=== PATIENT | female | born 1930 | race Caucasian/White ===

== ENCOUNTER 2016-07-31 13:43 | Day surgery (SDC) | payer MEDICARE, OTHER ==
[2016-07-31 14:30] VITALS: BP 181/85; PULSE 86; RESP 16; TEMP 97.2; O2SAT 96
--- NOTE | 2016-07-31 16:22 | RADRPT ---
EXAM DATE/TIME: 07/31/2016 00:00 [facility] COMPARISON : No previous studies available for comparison. INDICATIONS : Compress fx T 12 and L 2 OBJECTIVE: Temperature: 97.2 Heart Rate: 87 Blood Pressure: 182/105 Respiratory: 18 Oximetry: 96 PNEUMONIA VACCINE: YES HISTORY OF PRESENT ILLNESS: The patient sustained a compression fracture at the T12 level in mid June and continues to have s ignificant daily pain, mainly limiting her mobility. She is fairly comfortable at rest at this point. She does not have any radicular symptomatology. Patient has a known history of osteoporosis. An MRI performed at [facility] reveals moderate compressive deformity and severe diffuse edema and hemorrhage within the T12 vertebral body consistent with subacute injury. No evidence of retropulsion . Nothing to suggest pathologic fracture. A severe nonacute fracture deformity is present at L2 with central vertebra-plana yielding a bowtie configuration on sagittal evaluation with mild dorsal retrop ulsion and mild focal accentuation of kyphotic angulation. PAST MEDICAL HISTORY : 1. Parkinson's. PAST SURGICAL HISTORY : 1. Hysterectomy. C section X 1 Bilateral Knees replacement SOCIAL HISTORY : Social alcohol use. Allergy: amoxcicillin 1. Carbodopa/ana 25/100 t.i.d. 2. Trospium chloride mg b.i.d. 3. Thyroxine 75 mg q.d. Occuvite q.d. PHYSICAL EXAMINATION: Lungs: Clear to auscultation. CV: Regular rate and rhythm. The back is tender to palpitation at the thoracolumbar junction. IMAGING STUDIES: See above ASSESSMENT: Patient with moderate severity subacute compression fracture at T12 with persistent moderate symptoma tology, mainly with ambulation. The MR appearance of the fracture raises concern regarding the integr ity of the medullary space for retention of bone cement. Specifically, the majority of the vertebra a ppears to be fairly severely pulverized and there may be very little intact cortex to contain injecte d cement. If this is the case, we will accomplish very little with percutaneous augmentation. That sa id, the risk of procedural complication is probably only minimally greater than in the average case. The patient did indicate to me that she has had problems with anesthesia in the past, apparently post procedure confusion is the main issue. I had a long discussion with the patient, her and her son regarding the potential risks, benefits and alternatives. I am equivocal as to the likely short- term benefit of percutaneous vertebral augmentation in this case, however the likely strongest indica tion would be desire to prevent (if possible) progression of this acute fracture to a very severe lev el of anatomic deformity as we see with the old fracture at L2. PLAN: The patient and her family are going to consider options and I believe they will want to further disc uss these options with Dr. Hooks. Should they decided to proceed, we could get Mrs. Euceda on the schedule fairly quickly any time in the next couple of weeks Christos, I certainly appreciate the opportunity to assist you in the care of this pleasant lady. Hector Prescott MD on July 31, 2016 at 15:57 Board Certified Radiologist. This report was verified electronically.
== END 2016-07-31 15:20 | disposition home or self-care (01) ==
LOC: HROP 13:43 → HRIP 13:44 → HROP 15:20
PROVIDERS: ATTEND Family Medicine
DX: S22.080A Wedge compression fracture of T11-T12 vertebra, initial encounter for closed fracture (principal); M81.0 Age-related osteoporosis without current pathological fracture; G20 Parkinson's disease; Z53.9 Procedure and treatment not carried out, unspecified reason
CPT/HCPCS: 99213; G0463

== ENCOUNTER 2016-08-07 08:49 | Day surgery (SDC) | payer MEDICARE, OTHER ==
[~2016-08-07] VITALS: Ht 162.6 cm; Wt 68.2 kg
[2016-08-07] MEDS ORDERED: SODIUM CHLORID 0.9% 500 ML IV SCH (09:00)
[2016-08-07] MEDS ORDERED: LACTATED RINGER'S 1000 ML IV SCH (09:00)
[2016-08-07 09:15] VITALS: BP 127/78; PULSE 82; RESP 18; TEMP 97.8; O2SAT 95
[2016-08-07 09:23] VITALS: BP 169/95; PULSE 88; RESP 20; TEMP 97.9; O2SAT 94
[2016-08-07 09:30] VITALS: BP 127/59; PULSE 89; RESP 18; O2SAT 97
[2016-08-07] MEDS ORDERED: METOPROLOL TARTRATE 25 MG TAB PO PRN (09:30)
[2016-08-07] MEDS ORDERED: ceFAZolin 2 GM PREMIX 50 ML IV SCH (09:30)
[2016-08-07] MEDS ORDERED: INSULIN HUMAN REGULAR 1,000 UNITS/10 ML VIAL SQ PRN (09:30)
[2016-08-07] MEDS ORDERED: CARB25TA9 PO (09:40)
[2016-08-07] MEDS ORDERED: TROS60CA2 PO (09:40)
[2016-08-07] MEDS ORDERED: LEVO.075 PO (09:40)
[2016-08-07 09:58] LABS: AUTOMATED NEUTROPHIL # 4.9 TH/MM3 (1.8-7.7); BASOPHIL % 0.6 % (0.0-2.0); EOSINOPHIL # 0.2 TH/MM3 (0-0.4); EOSINOPHIL % 2.9 % (0.0-4.0); HEMATOCRIT 39.1 % (35.0-46.0); HEMO FLAGS DIFF FINAL; LYMPH % 12.7 % (9.0-44.0); LYMPHOCYTE # 0.8 TH/MM3 (1.0-4.8); MEAN CELL VOLUME 89.8 FL (80.0-100.0); MEAN CORPUSCULAR HEMOGLOBIN 30.5 PG (27.0-34.0); MONO % 4.9 % (0.0-8.0); NEUT % 78.9 % (16.0-70.0); PLATELET COUNT 255 TH/MM3 (150-450); RED BLOOD COUNT 4.36 MIL/MM3 (4.00-5.30); WHITE BLOOD COUNT 6.3 TH/MM3 (4.0-11.0)
[2016-08-07 10:00] VITALS: BP 110/63; PULSE 91; RESP 16; O2SAT 97
[2016-08-07] MEDS ORDERED: SODIUM CHLOR 0.9% 1000 ML INJ 1,000 ML IV SCH (10:00)
[2016-08-07 10:08] LABS: APTT (PATIENT) 25.9 SEC (24.3-30.1); PROTHROMBIN TIME - PATIENT 10.7 SEC (9.8-11.6)
--- NOTE | 2016-08-07 11:04 | EKG ---
Date Performed: 08/07/2016 Time Performed: 09:38:48 PTAGE: 85 years EKG: Sinus rhythm NORMAL ECG PREVIOUS TRACING : 07/30/2006 11.18 DOCTOR: Shon Montoya Interpretating Date/Time 08/07/2016 11:03:58
[2016-08-07] MEDS ORDERED: PROPOFOL 200 MG/20 ML AMP IV ONE (11:58)
--- NOTE | 2016-08-07 13:10 | PD.RAD ---
Post Procedure Progress Note Pre Procedure Diagnosis: (1) Osteoporotic compression fracture of spine Post Procedure Diagnosis: (1) Osteoporotic compression fracture of spine Procedure Date: Aug 07, 2016 Supervising Radiologist: Hector Prescott Proceduralist/Assist: RT Sabrina(R)(CV) Anesthesia: General Plan of Activity Patient to Unit: PACU Patient Condition: Good See PACS Report for procedural detail/treatment Spinal Procedure T12 Total Bone Cement (CCs): 3 Hector Prescott MD Aug 07, 2016 13:10
[2016-08-07] MEDS ORDERED: oxyCODONE/ACETAMINOPHEN 5 MG/325 MG TAB PO PRN ×2 (13:15)
[2016-08-07] MEDS ORDERED: HYDROmorphone HCL PF 1 MG/ML VIAL IVS PRN ×2 (13:15)
[2016-08-07] MEDS ORDERED: LABETALOL HCL 100 MG/20 ML VIAL ONE (13:19)
--- NOTE | 2016-08-07 13:53 | RADRPT ---
EXAM DATE/TIME: 08/07/2016 11:04 [facility] COMPARISON: No previous studies available for comparison. INDICATIONS : Patient with a history of T12 compression fracture. MEDICAL HISTORY : Hypothyroidism HTN Hyperlipidemia Parkinson's disease SURGICAL HISTORY : Hysterectomy Bilateral knee replacement ENCOUNTER: Initial ACUITY: 1 month PAIN SCORE: 7/10 LOCATION: Back FLUORO TIME: 20.6 minutes LEVEL: T12 Prophylactic antibiotics were administered with appropriate pre-procedure timing. DEVICE: 1. 3 cc AVAMax bone cement Anesthesia and pain control was provided by the Anesthesia department. TECHNIQUE: Department of anesthesia representatives were present for monitoring and sedation purp oses. The patient was placed prone on the fluoroscopy table. The back was prepped in sterile fashion. Full sterile technique was used, including cap, mask, sterile gloves and gown and a large sterile sh eet. Hand hygiene and 2% chlorhexidine and/or betadine/alcohol prep was utilized per protocol for cut aneous antisepsis. The skin and subcutaneous tissues were infiltrated with lidocaine solution. A smal l dermatotomy was made using a #11 scalpel blade. Using a bilateral posterior paramedian transpedicul ar approach, 11 gauge Jamshidi needles were introduced to the T12 vertebral body. A pair of 15 mm bal loon tamps were introduced and inflated, resulting in good cavity creation and some degree of vertebr al height taoism. AVAmax bone cement was then introduced with good symmetric filling of the vert ebral body. A total volume of 3 mL's of cement was introduced. Completion imaging was performed with digital technique. The patient tolerated the procedure well and was taken to the recovery area in sta ble condition. CONCLUSION: Uncomplicated fluoroscopic guided percutaneous vertebral augmentation as described in detail above. Hector Prescott MD on August 07, 2016 at 13:49 Board Certified Radiologist. This report was verified electronically.
[2016-08-07] MEDS ORDERED: *ENALAPRILAT 1.25 MG/ML VIAL PERIprocedural Use ONLY ONE (14:03)
[2016-08-07] MEDS ORDERED: *morphine SULFATE 8 MG/ML PERIprocedure ONLY ONE (14:07)
[2016-08-07 15:15] VITALS: BP 160/92; PULSE 89; RESP 18; TEMP 97.6; O2SAT 91
[2016-08-07 16:30] VITALS: BP 115/63; PULSE 92; RESP 18; O2SAT 92
== END 2016-08-07 17:00 | disposition home or self-care (01) ==
LOC: HROP 08:49 → HRIP 08:51 → HROP 17:00
PROVIDERS: ATTEND Family Medicine
DX: S22.089A Unspecified fracture of T11-T12 vertebra, initial encounter for closed fracture (principal); G20 Parkinson's disease; E78.5 Hyperlipidemia, unspecified; I10 Essential (primary) hypertension; E03.9 Hypothyroidism, unspecified; Z01.818 Encounter for other preprocedural examination; Z01.810 Encounter for preprocedural cardiovascular examination
CPT/HCPCS: 22513; 85025; 85610; 85730; 93005; J0690; J2270; J3010; J7030

== ENCOUNTER 2016-08-14 12:54 | Day surgery (SDC) | payer MEDICARE, OTHER ==
[~2016-08-14 12:54] MED LIST: CARB25TA9 PO; LEVO.075 PO; TROS60CA2 PO
[2016-08-14 13:24] VITALS: BP 145/86; PULSE 81; RESP 20; TEMP 97.7; O2SAT 91
--- NOTE | 2016-08-14 15:59 | RADRPT ---
EXAM DATE/TIME: 08/14/2016 00:00 [facility] COMPARISON : INDICATIONS : FOLLOW UP OF KYPHOPLASTY OBJECTIVE: Temperature: 97.7 Heart Rate: 81 Blood Pressure: 145/86 Respiratory: 20 Oximetry: 91 PNEUMONIA VACCINE: HISTORY OF PRESENT ILLNESS: Patient is status post Bipedicular T12 kyphoplasty. PAST MEDICAL HISTORY : 1. Hypothyroidism. 2. Hypertension. 3. Hypercholesterolemia. 4. Parkinson's. PAST SURGICAL HISTORY : 1. Hysterectomy. 2. Kyphoplasty. 3. SOCIAL HISTORY : ALLERGIES: 1. AMOXICILLIN MEDICATIONS: 1. CARBIDOPA,LEVODOPA 25-100MG mg q.i.d. 2. LEVOTHYROXINE 75 mcg q.d. 3. TROSPIUM ER 60 mg q.d. PHYSICAL EXAMINATION: Dermatotomies for transpedicular T12 access have essentially healed. ASSESSMENT: Patient is doing quite well status post T12 kyphoplasty. The pain has essentially resolved. Patient d oes complain of some right hip pain which I do not believe is related to the previous back issue. PLAN: Followup as clinically warranted TIME SPENT: 15 minutes Jass Pantoja MD on August 14, 2016 at 15:54 Board Certified Radiologist. This report was verified electronically.
== END 2016-08-14 14:25 | disposition home or self-care (01) ==
LOC: HROP 12:54 → HRIP 12:55 → HROP 14:25
PROVIDERS: ATTEND Radiology Body Imaging
DX: Z09 Encounter for follow-up examination after completed treatment for conditions other than malignant neoplasm (principal)